=== PATIENT | male | born 1955 | race Caucasian/White ===

== ENCOUNTER 2018-11-26 09:25 | Inpatient (IN) | payer OTHER ==
[2018-11-06 12:34] LABS: HEMATOCRIT 46.6 % (42.0-52.0); HEMOGLOBIN 15.9 gm/dL (14.0-18.0); MCH 33.2 pg (26.0-34.0); MCHC 34.2 g/dL (28.0-37.0); RBC 4.8 mil/uL (4.50-6.00); RDW 12.3 % (10.5-14.5); WBC 7.4 thou/uL (4.0-11.0)
[2018-11-06 12:38] LABS: URINE BILIRUBIN NEGATIVE (Negative); URINE BLOOD NEGATIVE (Negative); URINE CLARITY CLEAR; URINE COLOR YELLOW; URINE GLUCOSE-RANDOM* NEGATIVE (Negative); URINE KETONES NEGATIVE (Negative); URINE LEUKOCYTES-REFLEX NEGATIVE (Negative); URINE NITRITE-REFLEX NEGATIVE (Negative); URINE PROTEIN (DIPSTICK) TRACE (Negative)
[2018-11-06 12:48] LABS: INR 1.1; PROTIME 11.2 Seconds (9.3-11.4)
[2018-11-06 12:49] LABS: ALBUMIN 4.2 g/dL (3.4-5.0); CALCIUM 9.6 mg/dL (8.5-10.1); CREATININE 1.2 mg/dL (0.7-1.3); POTASSIUM 4.4 mmol/L (3.5-5.1)
--- NOTE | 2018-11-06 16:03 | EKG ---
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
[~2018-11-26] VITALS: Ht 170.2 cm; Wt 113.4 kg
--- NOTE | ~2018-11-26 | O ---
[facility] [place] [address] OPERATIVE REPORT Name: MARCONoraMICHELLE Room #: 422-P [facility] M.R.#: [id number] Admission: 11/26/18 Attend Phys: Dick Finley MD Discharge: Date of : 51 Report #: [id number] THIS REPORT FOR: //name// CC: Devang Finley DATE OF SERVICE: 11/26/2018 PREOPERATIVE DIAGNOSIS: Left knee medial compartment osteoarthritis. POSTOPERATIVE DIAGNOSIS: Left knee medial compartment osteoarthritis. PROCEDURE: Left unicompartmental knee arthroplasty using Navio robotic assistance. SURGEON: Dick Finley MD. RENTAL REPRESENTATIVE: Tatiana Lyons PA-C. INDICATIONS FOR RENTAL REPRESENTATIVE: Throughout the case, extensive retraction and manipulation of the knee was required. This was afforded to me by my human resources office assistant. ANESTHESIA: LMA with an adductor canal block. IMPLANTS: [employer] size 5 Journey II Oxinium medial femoral component, size 3 tibial component, size 9 polyethylene. TOURNIQUET TIME: 51 minutes. ESTIMATED BLOOD LOSS: 25 mL. COMPLICATIONS: None. SPECIMENS: None. CONDITION UPON LEAVING THE OPERATING ROOM: Stable. INDICATIONS FOR PROCEDURE: The patient is a 63-year-old gentleman with severe left knee medial compartment osteoarthritis. He had failed conservative measures for this and after discussion with him, he elected for left medial compartment knee arthroplasty. DESCRIPTION OF PROCEDURE: Risks, benefits, alternatives, complications were discussed in detail with the patient including but not limited to risk of anesthesia, risk of damage to nerves, arteries, blood vessels, risk for infection, bleeding, risk for continued knee pain and need for reoperation. [facility] [address] [place] [address] OPERATIVE REPORT Name: MARCONoraMICHELLE Room #: 422-P [facility] ..#: [id number] Admission: 11/26/18 Attend Phys: Dick Finley MD Discharge: Date of : 51 Report #: [id number] Informed consent was obtained from the patient. Left knee was appropriately marked in the preoperative holding area. IV clindamycin was given for preoperative antibiotics. Adductor canal block was placed by anesthesia. He was brought to the operating room and placed in the supine position on the operating room table. LMA anesthesia was induced without complication. Tourniquet was placed on the left thigh. Left lower extremity was prepped and draped in normal sterile fashion. Timeout was performed properly identifying the patient and procedure as well as the instrumentation and implants. All in the operating room were in agreement. Left lower extremity was exsanguinated, tourniquet was inflated. Tourniquet time was 51 minutes. Standard approach to the medial knee was made with 10 blade through the skin. Dissection was taken down sharply to the fascia, deep flaps were developed medially and laterally. Fresh 10 blade was used to make a medial parapatellar arthrotomy and the knee was inspected. There was severe medial compartment osteoarthritis. Lateral compartment was well maintained. 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 It was decided to proceed with unicompartmental knee arthroplasty. Reference pins were placed in the femur and the tibia. The knee was then digitally mapped using the [employer] robotic system. We sized the size 5 femur and a size 3 tibia and a 9 spacer. After acceptance of the intraoperative plan, the femoral and tibial resections were made with a Navio bur. The tibia was sized, found to be a size 3. Size 3 tibial trial was placed and drilled. Size 5 femoral trial was placed and the knee was then trialed with a size 9 polyethylene. Knee was taken through range of motion, found to have a millimeter laxity medially throughout range of motion. Trial components were removed. Bony ends were thoroughly irrigated with normal saline. A final size 3 tibia, size 5 Oxinium Journey II medial femoral component were cemented in place using standard cementation techniques. While the cement cured, a periarticular injection consisting of morphine, ropivacaine, epinephrine and Toradol was placed around the knee joint capsule. After the cement cured, tourniquet was deflated. Hemostasis was obtained with Bovie cautery. A final size 9 polyethylene was placed. A gram of vancomycin was placed deep in the joint. The fascia was closed with 0 Vicryl, skin was closed with 2-0 Vicryl, 3-0 Monocryl. Dermabond and a KRYSTYNA dressing was applied. The patient tolerated this procedure well and went to recovery room under care of anesthesia postoperatively. By: [id number] Dick Finley MD /nt
[~2018-11-26 09:25] MED LIST: APAP650 PO; ASPIR 8181 MG PO; COLACE100 MG PO; LASIX 20 MG TAB20 MG PO; LISINOPRIL5 MG PO; LOPRESSOR25 PO; LOVASTATIN 20 M20 MG PO; NITROGLYCERIN0.4 MG SUBLING; OMEGA-31000 M1 PO; PROTONIX40 M1 PO; ZETIA10 MG PO
[2018-11-26 11:56] VITALS: BP 146/75
[2018-11-26 15:30] VITALS: BP 139/79
[2018-11-26 16:00] VITALS: BP 124/87
[2018-11-26 17:07] VITALS: BP 163/88
--- NOTE | 2018-11-26 17:30 | NUR ---
ASSUMED CARE AT 1500, SHIFT ASSESSMENT DONE, MEDS GIVEN, VSS. REPORTED PAIN, PRN PAIN MEDS GIVEN. KRYSTYNA DRESSING TOLEFT KNEE C/D/I, LEFTY WRAP IN PLACE, PT BROUGHT THEIR OWN POLAR PACK FROM HOME. SCDs AND CHELY HOSE IN PLACE. WILL CONTINUE TO ASSESS AND ASSIST WITH ADLs NEEDED.
[2018-11-26 19:34] VITALS: BP 137/82
--- NOTE | 2018-11-27 01:04 | NUR ---
ASSESSMENT COMPLETED. PT IS A PLEASANT GENTLEMAN. LEFT KNEE WITH POST OP DRSG, TEDS AND SCDS IN PLACE. PT DENIES PAIN. PT IS VERY SHY OF TAKING NARCOTICS-VERY WORRIED ABOUT CONSTIPATION. GIVEN COLACE AT HS AND WILL PROBABLY START ON OTHER REGIMENS IN THE AM PER DOCTORS INPUT.PT DENIES NAUSEA. HE IS USING THE URINAL.HAS TRAMADOL ON STANDBY IF HE NEEDS IT. AFEBRILE. WILL CONTINUE WITH POC TILL EOS.
[2018-11-27 05:06] VITALS: BP 118/69
[2018-11-27 06:13] LABS: HEMOGLOBIN 13.7 gm/dL (14.0-18.0); MCH 32.7 pg (26.0-34.0); MCHC 32.6 g/dL (28.0-37.0); MCV 100.1 fL (80.0-100.0); RBC 4.2 mil/uL (4.50-6.00); RDW 12.3 % (10.5-14.5); WBC 13.6 thou/uL (4.0-11.0)
[2018-11-27 07:50] VITALS: BP 119/59
--- NOTE | 2018-11-27 10:58 | NUR ---
Assumed pt care at 7am.Pt in bed resting and ecited about knee surgery outcome.Assessment completed.vss.Am meds given with breakfast and well tolerated.Pt ambulated in hallways with therapist. Fair endurance noted. Thearpist will return after lunch to see pt again before dc home today. No verbal c/o. Will continue to monitor.
--- NOTE | 2018-11-27 12:17 | NUR ---
PT ADMITTED RELATED TO LT KNEE UNI COMPARTMENTAL. CM REVIEWED CHART AND SPOKE WITH CARE TEAM. CM MET WITH PT AT BEDSIDE THIS DAY. PT IS A&O X4. CM ROLE INTRODCUED. PT INDICATED HE LIVES IN A HOUSE WITH HIS SPOUSE WITH 1 STEP TO ENTER AND NO STEPS INSIDE. 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 PT INDICATED HE HAS A FWW TO ASSIST WITH MOBILITY UPON DC. PT IS SET UP WITH OP PT APPOINTMENT MONDAY AT [facility] IN [place]. PT ANTICIPATES RETURNING HOME TODAY. NO OTHER CM INTERVETNION INDICATED. CASE CLOSED.
[2018-11-27] MEDS ORDERED: TRAMADOL 50 MG50 MG PO (14:23)
[2018-11-27] MEDS ORDERED: NEURONTIN 300300 M1 PO (14:24)
[2018-11-27] MEDS ORDERED: ASPIR 8181 MG PO (14:24)
[2018-11-27 15:29] VITALS: BP 118/69
--- NOTE | 2018-11-27 16:11 | NUR ---
Assumed pt care at 7am.Pt in bed resting and very excited about going home today after therapy.Assessment completed.vss.Pt tolerated meds and diet. Pt ambulated in hallway with therapy and trained on using stair case before dc home.Rx and dc summary compiled and reviewed with pt and spouse.At 1607,pt dc home with in wc accompanied by volunteer.
== END 2018-11-27 16:07 | disposition home or self-care (01) | DRG 470 ==
LOC: 4E 09:25 → TBA 09:25 → PRE 10:56 → 4E 15:27 → ENTRNSPT 11-27 15:58 → 4E 11-27 16:07
PROVIDERS: ADMIT Orthopaedic Surgery
PROC: 0SRD0L9 Replacement of Left Knee Joint with Medial Unicondylar Synthetic Substitute, Cemented, Open Approach (ICD-10-PCS; principal; 2018-11-26)
PROC: 8E0Y0CZ Robotic Assisted Procedure of Lower Extremity, Open Approach (ICD-10-PCS; principal; 2018-11-26)
DX: M17.12 Unilateral primary osteoarthritis, left knee (principal); G47.33 Obstructive sleep apnea (adult) (pediatric); E78.5 Hyperlipidemia, unspecified; I10 Essential (primary) hypertension; E66.01 Morbid (severe) obesity due to excess calories; Z95.5 Presence of coronary angioplasty implant and graft; Z68.39 Body mass index [BMI] 39.0-39.9, adult; Z79.1 Long term (current) use of non-steroidal anti-inflammatories (NSAID); Z79.899 Other long term (current) drug therapy; Z88.1 Allergy status to other antibiotic agents
CPT/HCPCS: 10783; 50010; 50101; 50415; 50954; 51130; 51225; 53078; 53370; 54118; 56527; 56528; 57095; 57103; 57110; 57127; 57180; 62110; 62900; 64039; 70005